=== PATIENT | female | born 1955 | race Caucasian/White ===

== ENCOUNTER → 2022-07-19 | Emergency (ER) | payer OTHER, MEDICARE, BC ==
[~2022-07-19] VITALS: Ht 157.5 cm; Wt 77.3 kg
[~2022-07-19] MED LIST: ACET-1059 PO; IBUP-1986 PO; WALK1EAC55 MC; ibuprofen tablet 400 MG TABLET PO ONE
[2022-07-19 19:41] VITALS: BP 170/94
--- NOTE | 2022-07-20 00:04 | NUR ---
Pt didn't do so well on the crutches, walker used with better success.
== END | disposition home or self-care (01) ==
LOC: ER 19:31
DX: S82.892A Other fracture of left lower leg, initial encounter for closed fracture (principal); F32.A Depression, unspecified; W19.XXXA Unspecified fall, initial encounter; Y93.89 Activity, other specified; Y92.89 Other specified places as the place of occurrence of the external cause; Y99.8 Other external cause status
CPT/HCPCS: 29515; 73610; 73630; 99284